=== PATIENT | female | born 1965 | race Caucasian/White ===

== ENCOUNTER 2017-06-09 10:37 | Emergency (ER) | payer OTHER ==
[~2017-06-09] VITALS: Ht 157.5 cm; Wt 68.0 kg
[2017-06-09] MEDS ORDERED: DIAZEPAM 2 MG TABLET PO ONE (11:15)
--- NOTE | 2017-06-09 11:20 | NUR ---
pt is in room #2a. dr Mccauley evaluated the pt.
[2017-06-09] MEDS ORDERED: DIAZEPAM 2 MG TABLET ONE (11:35)
[2017-06-09 11:43] LABS: *BILIRUBIN,URIN NEGATIVE (NEGATIVE); *BLOOD, URINE Trace-intact (NEGATIVE); *CLARITY,URINE CLEAR (CLEAR); *COLOR,URINE YELLOW (YELLOW); *KETONES,URINE NEGATIVE (NEGATIVE); *PROTEIN,URINE NEGATIVE (NEGATIVE); *UROBILINOGEN,URINE 0.2 E.U./dl (NORMAL); LEUKOCYTE ESTERASE ,URINE NEGATIVE (NEGATIVE); NITRITE, URINE NEGATIVE (NEGATIVE); PH,URINE 5.5 (5.0-8.0); UGLUCOSE NEGATIVE (NEGATIVE)
[2017-06-09 11:51] LABS: BACTERIA,URINE FEW /HPF (NONE SEEN); RBC,URINE 0-3 /HPF (0-3); SQUAMOUS EPITHELIAL CELL,UR MODERATE /HPF (NONE SEEN); WBC,URINE 0-3 /HPF (0-3)
--- NOTE | 2017-06-09 12:10 | NUR ---
Patient discharged to home in stable conditon. Written and verbal after care instructions given. Patient verbalizes understanding of instructions. Stressed follow up with pmd.
== END 2017-06-09 12:12 | disposition home or self-care (01) ==
LOC: ER 10:37
DX: M54.9 Dorsalgia, unspecified (principal); F17.200 Nicotine dependence, unspecified, uncomplicated; Z88.8 Allergy status to other drugs, medicaments and biological substances
CPT/HCPCS: A4663

== ENCOUNTER 2017-10-17 13:36 | Emergency (ER) | payer OTHER ==
[~2017-10-17] VITALS: Ht 157.5 cm; Wt 70.3 kg
[2017-10-17] MEDS ORDERED: DIPH25TA62 PO (13:49)
--- NOTE | 2017-10-17 13:58 | NUR ---
MSE DONE BY DR ALEXANDRE AT BEDSIDE ROOM 04A.
[2017-10-17 14:21] LABS: BASOPHILS # (AUTO) 0.1 K/uL (0.0-8.0); BASOPHILS % (AUTO) 0.8 % (0.0-2.0); EOSINOPHILS # (AUTO) 0.3 K/uL (0.0-0.7); EOSINOPHILS % (AUTO) 4.1 % (0.0-7.0); HEMATOCRIT 39.2 % (31.2-41.9); HEMOGLOBIN 13.2 g/dL (10.9-14.3); LYMPHOCYTES # (AUTO) 1.6 K/uL (20.0-40.0); MEAN CORPUSCULAR HEMOGLOBIN 32.3 uug (24.7-32.8); MEAN CORPUSCULAR HGB CONC 34 g/dL (32.3-35.6); MEAN CORPUSCULAR VOLUME 95.7 fL (75.5-95.3); MONOCYTES # (AUTO) 0.3 K/uL (2.0-10.0); MONOCYTES % (AUTO) 4.4 % (0.0-11.0); NEUTROPHILS # (AUTO) 5.5 K/uL (1.8-8.9); NEUTROPHILS % (AUTO) 70.7 % (38.5-71.5); PLATELET COUNT (AUTO) 262 K/uL (179-408); RED BLOOD CELL COUNT(AUTO) 4.09 MIL/uL (3.63-4.92); WHITE BLOOD COUNT (AUTO) 7.7 K/uL (3.8-11.8)
[2017-10-17 14:37] LABS: CREATININE 0.8 mg/dL (0.6-1.3); POTASSIUM 3.8 mmol/L (3.5-5.1)
[2017-10-17 14:50] VITALS: BP 112/78
--- NOTE | 2017-10-17 14:53 | NUR ---
Patient discharged to home in stable conditon. Written and verbal after care instructions given. Patient verbalizes understanding of instructions.
== END 2017-10-17 14:54 | disposition home or self-care (01) ==
LOC: ER 13:36
DX: R60.9 Edema, unspecified (principal); F17.210 Nicotine dependence, cigarettes, uncomplicated; Z90.710 Acquired absence of both cervix and uterus; Z79.899 Other long term (current) drug therapy
CPT/HCPCS: 36415; 80048; 85025; 85730; 93971; 99285; A4663

== ENCOUNTER 2018-07-31 11:20 | Emergency (ER) | payer OTHER ==
[~2018-07-31] VITALS: Ht 157.5 cm; Wt 77.1 kg
[~2018-07-31 11:20] MED LIST: DIPH25TA62 PO
[2018-07-31] MEDS ORDERED: PARO25TA16 PO (11:34)
[2018-07-31] MEDS ORDERED: predniSONE 20 MG TABLET PO ONE (11:45)
[2018-07-31] MEDS ORDERED: diphenhydrAMINE 50 MG CAPSULE PO ONE (11:45)
[2018-07-31] MEDS ORDERED: predniSONE 10 MG TABLET ONE (11:48)
[2018-07-31] MEDS ORDERED: predniSONE 50 MG TABLET ONE (11:48)
[2018-07-31] MEDS ORDERED: diphenhydrAMINE 50 MG CAPSULE ONE (11:49)
--- NOTE | 2018-07-31 11:50 | NUR ---
Patient discharged to home in stable conditon. Written and verbal after care instructions given. Patient verbalizes understanding of instructions.pt walks in steady gait. pt familiar with benadryl and prednisone and how it affects her.
== END 2018-07-31 11:51 | disposition home or self-care (01) ==
LOC: ER 11:20
DX: L50.0 Allergic urticaria (principal); F17.200 Nicotine dependence, unspecified, uncomplicated; Z90.710 Acquired absence of both cervix and uterus; Z88.5 Allergy status to narcotic agent; Z79.899 Other long term (current) drug therapy
CPT/HCPCS: 99283; J7512 ×2; Q0163; A4663

== ENCOUNTER 2018-08-30 18:44 | Emergency (ER) | payer OTHER ==
[~2018-08-30] VITALS: Ht 165.1 cm; Wt 77.1 kg
[~2018-08-30 18:44] MED LIST changes: +PARO25TA16 PO
--- NOTE | 2018-08-30 19:44 | NUR ---
Dr. Bernabe DORAN MD at bedside to evaluate pt.
--- NOTE | 2018-08-30 20:01 | NUR ---
Patient discharged to home in stable conditon. Written and verbal after care instructions given. Patient verbalizes understanding of instructions. Pt left ER in steady gait w family member. All belongings w pt. VSS. NAD noted.
[2018-08-30 20:03] VITALS: BP 129/81
== END 2018-08-30 20:03 | disposition home or self-care (01) ==
LOC: ER 18:44
DX: L30.8 Other specified dermatitis (principal); F17.200 Nicotine dependence, unspecified, uncomplicated; Z90.710 Acquired absence of both cervix and uterus; Z88.5 Allergy status to narcotic agent; Z79.899 Other long term (current) drug therapy
CPT/HCPCS: A4663